=== PATIENT | female | born 1975 | race Caucasian/White ===

== ENCOUNTER 2022-02-15 10:28 | Outpatient (REF) | payer BC, SELFPAY | END 2022-02-15 10:29 | disposition home or self-care (01) | LOC: LBN 10:28 | PROVIDERS: Visit Provider Family Medicine ==

== ENCOUNTER 2022-02-15 11:47 | Outpatient (CLI) | payer BC, SELFPAY ==
--- NOTE | 2022-02-15 11:09 | DI.RAD_ITS ---
Exam(s) XR KNEE LT 3V AP,LAT,IGNACIO EXAM: XR KNEE LT 3V AP,LAT,IGNACIO CLINICAL HISTORY: LEFT KNEE JOINT PAIN, M25.562. TECHNIQUE: 2D digital imaging was performed. Three views. COMPARISON: No exams were available for comparison FINDINGS: BONES: No acute fracture is present. No bony destructive lesion is seen. JOINTS: The knee is normally aligned. No joint effusion is seen. Minimal periarticular spurring SOFT TISSUE: Normal. IMPRESSION: Minimal degenerative changes. DATA REPOSITORY: RADIATION DOSE DELIVERED:
== END 2022-02-15 12:07 ==
PROVIDERS: Visit Provider Family Medicine
DX: M25.562 Pain in left knee (principal); M17.12 Unilateral primary osteoarthritis, left knee
CPT/HCPCS: 73562

== ENCOUNTER 2022-12-02 11:52 | Outpatient (CLI) | payer BC, SELFPAY ==
--- NOTE | 2022-12-02 | DI.RAD_ITS ---
Exam(s) XR HIP LT COMPLETE AP PELVIS EXAM: XR HIP LT COMPLETE AP PELVIS INDICATION: LT HIP PAIN CHRONIC, M25.552. COMPARISON: No exams were available for comparison TECHNIQUE: 2D digital imaging was performed. Two views. FINDINGS: The hip joint spaces are maintained. There is no acetabular spurring. SI joints and pubic symphysi s are unremarkable. No soft tissue or joint space calcifications are seen. IMPRESSION: Negative pelvis and left hip DATA REPOSITORY: RADIATION DOSE DELIVERED:
== END 2022-12-02 12:12 ==
PROVIDERS: Visit Provider Nurse Practitioner Family
DX: M25.552 Pain in left hip (principal); G89.29 Other chronic pain
CPT/HCPCS: 73502

== ENCOUNTER 2022-12-02 13:13 | Outpatient (CLI) | payer BC, SELFPAY ==
[2022-12-02 12:37] LABS: Hemoglobin A1C 5.4 % (<5.7)
[2022-12-02 12:46] LABS: D-Dimer 317 ng/mlFEU (<500)
[2022-12-02 13:05] LABS: ALT 20 U/L (14-59); AST 11 U/L (15-37); Albumin 3.8 g/dL (3.4-5.0); Alkaline Phosphatase 82 U/L (46-116); Anion Gap 8.7 mmol/L (3-11); BUN 17 mg/dL (7-18); Bilirubin, Total 0.4 mg/dL (0.2-1.0); CO2 28.3 mmol/L (21.0-32.0); CREATININE 0.9 mg/dL (0.55-1.02); Calcium 9.1 mg/dL (8.5-10.1); Calculated LDL 163 mg/dL (<100); Chloride 105 mmol/L (98-107); Cholesterol 238 mg/dL (<200); Estimated GFR 78.37 (mL/min/1.73m2); Glucose 100 mg/dL (74-106); HDL Cholesterol 61 mg/dL (40-60); Magnesium 1.9 mg/dL (1.8-2.4); Potassium 4.2 mmol/L (3.5-5.1); Sodium 142 mmol/L (136-145); Total Protein 7.8 g/dL (6.4-8.2); Triglyceride 72 mg/dL (<150)
[2022-12-02 14:49] LABS: Vitamin D 25 Total 8.3 ng/mL (30-100)
== END 2022-12-02 13:14 | disposition home or self-care (01) ==
LOC: LBO 13:14
PROVIDERS: Visit Provider Nurse Practitioner Family
DX: R25.2 Cramp and spasm (principal); Z83.2 Family history of diseases of the blood and blood-forming organs and certain disorders involving the immune mechanism; Z13.220 Encounter for screening for lipoid disorders; Z13.1 Encounter for screening for diabetes mellitus; Z83.3 Family history of diabetes mellitus; E55.9 Vitamin D deficiency, unspecified
CPT/HCPCS: 36415; 80053; 80061; 82306; 83036; 83735; 85379

== ENCOUNTER 2022-12-15 01:17 | Outpatient (CLI) | payer BC, SELFPAY ==
--- NOTE | 2022-12-15 12:35 | DI.MAMMO_ITS ---
Exam(s) MAMMO SCREENING EXAM: MAMMO SCREENING CLINICAL HISTORY: SCREENING, Z12.39 TECHNIQUE: Mammograms were interpreted according to the usual protocol including computer analysis w the[employer] CAD system, tomosynthesis and C-view imaging. COMPARISON: 2017 [facility] FINDINGS: The breasts are composed of heterogeneously dense fibroglandular densities, Breast Density category C . No suspicious masses or suspicious microcalcifications are seen. No skin thickening or abnormal axillary lymph nodes are seen. There has been no significant change from prior exam. IMPRESSION: BI-RADS Category 1, Negative mammogram. Yearly screening mammography is recommended. Breast Density Category C, heterogeneously Dense. The mammogram demonstrates the patient's breast tissue is dense. Dense breast tissue is very common a nd is not abnormal but dense breast tissue can make it harder to find cancer on a mammogram. Also, de nse breast tissue may increase breast cancer risk. This information about the result of the mammogram report was provided to the patient to raise their awareness. Use this report when you speak with the patient about their risks for breast cancer, which includes their family history. At that time, you may recommend additional screening tests (Ultrasound or MRI) as they might be useful based on their r isk. A negative radiographic report should not delay biopsy if a dominant or clinically suspicious mass is present. Up to ten percent of cancers are not identified on mammography. A negative report may reinforce clinical impression. Adenosis and dense breasts may obscure an underlying neoplasm. False positive reports average 6 to 10%.
== END 2022-12-15 01:37 ==
LOC: DI 01:17
PROVIDERS: Visit Provider Nurse Practitioner Family
DX: Z12.31 Encounter for screening mammogram for malignant neoplasm of breast (principal)
CPT/HCPCS: 77063; 77067

== ENCOUNTER 2025-07-23 16:59 | Outpatient (REF) | payer BC, SELFPAY ==
[2025-07-23 17:10] LABS: HCT 44.6 % (36.0-46.0); HGB 14.4 g/dL (11.2-15.7); MCH 29.6 pg (27.0-33.0); MCHC 32.3 % (32.0-36.0); MCV 92 fL (80-95); MPV 11.3 fL (8.0-11.0); Platelet Count 314 10^3/uL (130-400); RBC 4.86 10^6/uL (3.93-5.22); RDW 13.1 % (11.7-14.6); RDW-SD 44.5 fL; WBC 7.48 10^3/uL (4.4-10.8)
[2025-07-23 17:27] LABS: ALT 22 U/L (14-59); AST 11 U/L (15-37); Albumin 3.7 g/dL (3.4-5.0); Alkaline Phosphatase 88 U/L (46-116); Anion Gap 7.0 mmol/L (3-11); BUN 14 mg/dL (7-18); Bilirubin, Total 0.3 mg/dL (0.2-1.0); CO2 27.0 mmol/L (21.0-32.0); Calcium 8.9 mg/dL (8.5-10.1); Calculated LDL 161 mg/dL (<100); Chloride 104 mmol/L (98-107); Cholesterol 223 mg/dL (<200); Estimated GFR 76.92 (mL/min/1.73m2); Glucose 91 mg/dL (74-106); HDL Cholesterol 43 mg/dL (>or=50); Potassium 4.1 mmol/L (3.5-5.1); Sodium 138 mmol/L (136-145); TSH (W/Ref FT4) 1.25 uIU/mL (0.36-3.74); Total Protein 7.2 g/dL (6.4-8.2); Triglyceride 95 mg/dL (<150)
== END 2025-07-23 17:00 | disposition home or self-care (01) ==
LOC: NCHCN 16:59
DX: Z13.6 Encounter for screening for cardiovascular disorders (principal); Z00.00 Encounter for general adult medical examination without abnormal findings; E66.811 Obesity, class 1
CPT/HCPCS: 80053; 80061; 85027; 84443